=== PATIENT | female | born 1975 | race African-American/Black ===

== ENCOUNTER 2016-11-23 22:33 | Emergency (ER) | payer BC ==
[~2016-11-23 22:33] MED LIST: ANXIETY MEDICATION PO; CIP5 PO; FERROUS SULF325 M1 PO; HUMALOG SC; HYDROCHLOROT25 MG PO; KLOR-CON 1010 MEQ PO; LANTUS SC; LOVENOX40 PO; METHOC750B PO; MSIMMR15 PO; NEUR300 PO; NORV10 PO; NOVOLOG SC; PR25 PO; PRAVAC PO; PRILOSEC40 MG PO; PRIN20 PO; SUDAFED PO; ULTRAM50 PO; VITAMIN B-121000 MC1 SL; ZESTORETIC PO; [UNRECOGNIZED DRUG - OTHER]
== END 2016-11-23 23:54 | disposition home or self-care (01) ==
LOC: ER 22:33
DX: S90.112A Contusion of left great toe without damage to nail, initial encounter (principal); I10 Essential (primary) hypertension; E11.9 Type 2 diabetes mellitus without complications; Z88.8 Allergy status to other drugs, medicaments and biological substances; Z79.4 Long term (current) use of insulin; Z79.899 Other long term (current) drug therapy; X58.XXXA Exposure to other specified factors, initial encounter
CPT/HCPCS: 73660-LT; 93005; 96372; 99284; J1170